=== PATIENT | female | born 1970 | race Two or more races ===

== ENCOUNTER 2016-12-25 22:03 | Emergency (ER) | payer SELFPAY ==
[~2016-12-25] VITALS: Ht 170.2 cm; Wt 78.7 kg
[~2016-12-25 22:03] MED LIST: AMLO10TA4 PO; CYCL-259 PO; HYDR25TA6 PO; LISI40TA PO
[2016-12-25] MEDS ORDERED: HYDROcodone/APAP 5/325 TABLET ONE (23:00)
[2016-12-25 23:19] LABS: HEMATOCRIT 40.5 % (34.6-47.8); HEMOGLOBIN 13.8 g/dL (11.7-16.4); WHITE BLOOD COUNT 6.1 x10^3/uL (3.4-10)
[2016-12-25 23:28] LABS: ASPARTATE AMINO TRANSFERASE 16 U/L (15-37); BLOOD UREA NITROGEN 16 mg/dL (7-18)
[2016-12-25] MEDS ORDERED: HYDROcodone/APAP 5/325 TABLET PO ONE (23:30)
[2016-12-26 00:08] VITALS: BP 110/66
== END 2016-12-26 01:03 ==
LOC: ED 23:07
DX: M25.562 Pain in left knee (principal); M79.652 Pain in left thigh; R10.9 Unspecified abdominal pain; I10 Essential (primary) hypertension; M79.7 Fibromyalgia; Z91.041 Radiographic dye allergy status; Z91.040 Latex allergy status; Z88.5 Allergy status to narcotic agent
CPT/HCPCS: 36415; 80053; 81003; 83690; 85025; 99285

== ENCOUNTER 2016-12-29 12:18 | Emergency (ER) | payer OTHER ==
[~2016-12-29] VITALS: Ht 170.2 cm; Wt 78.1 kg
[2016-12-29] MEDS ORDERED: SODIUM CHLORIDE FLUSH 10ML SYR IVF ONE (13:00)
[2016-12-29] MEDS ORDERED: HYDROmorphone 1 MG/ML, 1ML IV ONE (13:00)
[2016-12-29] MEDS ORDERED: ONDANSETRON 2MG/ML, 2ML IVPush ONE (13:00)
[2016-12-29 13:08] LABS: HEMOGLOBIN 15.4 g/dL (11.7-16.4); WHITE BLOOD COUNT 5.4 x10^3/uL (3.4-10)
[2016-12-29 13:23] LABS: BLOOD UREA NITROGEN 10 mg/dL (7-18)
[2016-12-29 13:30] LABS: ASPARTATE AMINO TRANSFERASE 20 U/L (15-37)
[2016-12-29] MEDS ORDERED: ONDANSETRON 2MG/ML, 2ML ONE (14:35)
[2016-12-29] MEDS ORDERED: HYDROmorphone 1 MG/ML, 1ML ONE (14:35)
[2016-12-29 15:55] VITALS: BP 101/55
== END 2016-12-29 15:58 | disposition home or self-care (01) ==
LOC: ED 14:39
DX: N83.02 Follicular cyst of left ovary (principal); I10 Essential (primary) hypertension
CPT/HCPCS: 36415; 76830; 80053; 81003; 83690; 84703; 85025; 96374; 96375; 99285; J1170; J2405

== ENCOUNTER 2017-03-17 20:19 | Emergency (ER) | payer OTHER ==
[~2017-03-17] VITALS: Ht 170.2 cm; Wt 84.0 kg
[2017-03-17] MEDS ORDERED: IBUPROFEN 200 MG TABLET ONE (21:22)
[2017-03-17 21:23] LABS: HEMATOCRIT 39.4 % (34.6-47.8); HEMOGLOBIN 13.5 g/dL (11.7-16.4); WHITE BLOOD COUNT 8.1 x10^3/uL (3.4-10)
[2017-03-17] MEDS ORDERED: HYDROcodone/APAP 5/325 TABLET ONE (21:23)
[2017-03-17] MEDS ORDERED: SODIUM CHLORIDE FLUSH 10ML SYR IVF ONE (21:30)
[2017-03-17] MEDS ORDERED: HYDROcodone/APAP 5/325 TABLET PO ONE (21:30)
[2017-03-17] MEDS ORDERED: IBUPROFEN 200 MG TABLET PO ONE (21:30)
[2017-03-17 21:33] LABS: ASPARTATE AMINO TRANSFERASE 15 U/L (15-37); BLOOD UREA NITROGEN 19 mg/dL (7-18)
[2017-03-17] MEDS ORDERED: OMNIPAQUE 350 MG/ML, 100ML BOTTLE ONE (22:10)
[2017-03-17 23:12] VITALS: BP 104/60
== END 2017-03-17 23:15 | disposition home or self-care (01) ==
LOC: ED 20:40
DX: N83.292 Other ovarian cyst, left side (principal); I10 Essential (primary) hypertension; M79.7 Fibromyalgia; Z88.5 Allergy status to narcotic agent; Z91.041 Radiographic dye allergy status
CPT/HCPCS: 36415; 74177; 80053; 81003; 83690; 85025; 99285; Q9967

== ENCOUNTER 2017-06-15 11:32 | Emergency (ER) | payer OTHER ==
[~2017-06-15] VITALS: Ht 170.2 cm; Wt 81.0 kg
[2017-06-15] MEDS ORDERED: ALBUTEROL/IPRATROPIUM 2.5MG/0.5MG, 3 ML NPPB ONE (12:00)
[2017-06-15] MEDS ORDERED: ALBUTEROL/IPRATROPIUM 2.5MG/0.5MG, 3 ML ONE (12:31)
[2017-06-15 12:59] VITALS: BP 158/70
== END 2017-06-15 13:01 | disposition home or self-care (01) ==
LOC: ED 12:45
DX: J20.8 Acute bronchitis due to other specified organisms (principal); B96.89 Other specified bacterial agents as the cause of diseases classified elsewhere; J00 Acute nasopharyngitis [common cold]; J01.00 Acute maxillary sinusitis, unspecified; J01.10 Acute frontal sinusitis, unspecified; Z90.710 Acquired absence of both cervix and uterus; Z91.040 Latex allergy status; Z91.048 Other nonmedicinal substance allergy status; Z91.041 Radiographic dye allergy status; I10 Essential (primary) hypertension; M79.7 Fibromyalgia
CPT/HCPCS: 71046; 94640; 99284; J7512; J7620

== ENCOUNTER 2019-12-16 12:54 | Emergency (ER) | payer OTHER ==
[~2019-12-16] VITALS: Ht 170.2 cm; Wt 81.0 kg
--- NOTE | 2019-12-16 13:24 | NUR ---
pt brought 21 to room from lobby
--- NOTE | 2019-12-16 13:30 | NUR ---
pt presents to ED for workup of symptoms since 12/01/19 - headache, nausea, diarrhea, bilateral upper abd and epigastric pain. yesterday had episode of bilateral shoulder pain, radiating to upper back and neck, this pain persists today, tender to touch, negative for covid 5 days ago. pt attached to all monitors, EKG taken by this RN, reviewed by ANDREW Lopez. Addendum: 12/16/19 at 1505 by SOCORRO pt presents to ED for workup of symptoms since 12/01/19 - headache, nausea, diarrhea, bilateral upper abd and epigastric pain. yesterday had episode of bilateral shoulder pain, radiating to upper back and neck, this pain persists today, tender to touch, negative for covid 5 days ago. pt is a&o, resps even and unlabored. pt attached to all monitors, EKG taken by this RN, reviewed by ANDREW Lopez. awaiting orders from provider at this time.
[2019-12-16] MEDS ORDERED: FAMOTIDINE 20 MG/2 ML ONE (13:57)
[2019-12-16] MEDS ORDERED: MAALOX/HYOSCYAMINE/LIDOCAINE 45 ML BTL ONE (13:57)
[2019-12-16] MEDS ORDERED: ONDANSETRON 2MG/ML, 2ML ONE (13:57)
[2019-12-16] MEDS ORDERED: MAALOX/HYOSCYAMINE/LIDOCAINE 45 ML BTL PO ONE (14:00)
[2019-12-16] MEDS ORDERED: SODIUM CHLORIDE 0.9% 1,000ML IVBOLUS ONE (14:00)
[2019-12-16] MEDS ORDERED: ONDANSETRON 2MG/ML, 2ML IVPush ONE (14:00)
[2019-12-16] MEDS ORDERED: FAMOTIDINE 20 MG/2 ML IV ONE (14:00)
--- NOTE | 2019-12-16 14:10 | NUR ---
PIV PLACED, IVF INFUSING, PT MEDICATED PER EMAR. PT TOLERATED WELL. PT IS A&O, RESPS EVEN AND UNLABORED, NSR ON LAB NURSE WITH NO ECTOPY NOTED.
[2019-12-16 14:36] LABS: BASOPHILS # (AUTO) 0.05 x10^3/uL (0-0.1); BASOPHILS % (AUTO) 1 % (0-1); EOSINOPHILS # (AUTO) 0.16 x10^3/uL (0-0.4); EOSINOPHILS % (AUTO) 2 % (1-7); LYMPHOCYTES # (AUTO) 2.07 x10^3/uL (1-3.4); LYMPHOCYTES % (AUTO) 24 % (22-44); MD NO; MEAN CORPUSCULAR HEMOGLOBIN 29.3 pg (27.0-34.8); MEAN CORPUSCULAR VOLUME 88.9 fL (80-100); MEAN PLATELET VOLUME 7.8 fL (7.4-10.4); MONOCYTES # (AUTO) 0.85 x10^3/uL (0.2-0.8); MONOCYTES % (AUTO) 10 % (2-9); NEUTROPHILS # (AUTO) 5.45 x10^3/uL (1.8-6.8); NEUTROPHILS % (AUTO) 64 % (42-75); PLATELET COUNT 285 x10^3/uL (130-400); RED BLOOD COUNT 4.92 x10^6/uL (3.82-5.3); RED CELL DISTRIBUTION WIDTH 13.3 % (9.6-15.2)
[2019-12-16 14:37] LABS: ALBUMIN 3.6 g/dL (3.4-5.0); ANION GAP 6 mmol/L (5-15); CALCIUM 9.4 mg/dL (8.5-10.1); CHLORIDE 112 mmol/L (98-107)
[2019-12-16 14:40] LABS: ALANINE AMINOTRANSFERASE 45 U/L (12-78); ALKALINE PHOSPHATASE 100 U/L (45-117); BILIRUBIN,TOTAL 0.3 mg/dL (0.2-1.0); TOTAL PROTEIN 7.3 g/dL (6.4-8.2)
[2019-12-16 14:54] VITALS: BP 144/81
--- NOTE | 2019-12-16 15:09 | NUR ---
REVIEW OF CHART, ASSUME CARE OF PT AT THIS TIME.
--- NOTE | 2019-12-16 15:11 | NUR ---
REPORT GIVEN TO SANDOVAL ESTRELLA WHO IS ASSUMING CARE, PT HAS NOT STOOLED SINCE ARRIVAL TO ED.
--- NOTE | 2019-12-16 15:25 | NUR ---
PT REPORTS ABD PAIN IS WORSE, REQUESTING PAIN MEDICATION. EDPA NOTIFIED. PT IS A&O, RESPS EVEN AND UNLABORED, CURLED AND CLUTCHING STOMACH. PT ASKED IF SHE IS ABLE TO PROVIDE STOOL SAMPLE, PT DENIES URGE AT THIS TIME. CALL LIGHT IN REACH, ALL MONITORS IN PLACE, KIMBERLY ZAVALETA TO SEE PT.
--- NOTE | 2019-12-16 16:19 | NUR ---
ADD ON ORDER FOR CT ABD/PELVIS.
[2019-12-16] MEDS ORDERED: OMNIPAQUE 350 MG/ML, 100ML BOTTLE ONE (16:50)
[2019-12-16 18:30] LABS: MICROSCOPIC NOT IND
[2019-12-16 18:34] LABS: CLOSTRIDIUM DIFFICILE ANTIGEN NEGATIVE; CLOSTRIDIUM DIFFICILE TOXIN NEGATIVE (Negative)
--- NOTE | 2019-12-16 19:19 | NUR ---
REPORT FROM SANDOVAL JO. PT CARE RESPNSIBILITIES ASSUMED.
--- NOTE | 2019-12-16 19:28 | NUR ---
STOOL RESULTS BACK, PT FOR RECHECK. REPORT TO VERA NICK.
== END 2019-12-16 20:12 | disposition home or self-care (01) ==
LOC: ED 14:19
DX: A02.0 Salmonella enteritis (principal); R11.2 Nausea with vomiting, unspecified; R19.7 Diarrhea, unspecified; R51 Headache; R94.31 Abnormal electrocardiogram [ECG] [EKG]; I10 Essential (primary) hypertension; Z90.710 Acquired absence of both cervix and uterus
CPT/HCPCS: 36415; 74177; 80053; 81003; 83690; 85025; 87324; 89055; 93005; 96361; 96374; 96375; 99285; J2405; J3490; J7030; Q9967

== ENCOUNTER 2020-05-03 09:36 | Emergency (ER) | payer SELFPAY ==
[~2020-05-03] VITALS: Ht 170.2 cm; Wt 81.5 kg
--- NOTE | 2020-05-03 10:02 | NUR ---
PT PRESENTED TO ED D/T DIFFUSE ABD PAIN, N/V, DIARRHEA, AND INSOMNIA SINCE OCTOBER 2019. PT STATES HAS LOST "7 POUNDS" OVER THE PAST WEEK. HX OF FIBROMYALGIA. RECENTLY DIAGNOSED WITH HYPOPARATHYROIDISM.
[2020-05-03] MEDS ORDERED: AMIT50TA PO (10:07)
--- NOTE | 2020-05-03 10:07 | NUR ---
PA STUDENT AT BEDSIDE.
[2020-05-03] MEDS ORDERED: FAMOTIDINE 20 MG/2 ML ONE (10:20)
[2020-05-03] MEDS ORDERED: MAALOX/HYOSCYAMINE/LIDOCAINE 45 ML BTL ONE (10:20)
[2020-05-03] MEDS ORDERED: ONDANSETRON 2MG/ML, 2ML ONE (10:20)
--- NOTE | 2020-05-03 10:32 | NUR ---
PIV ACCESS OBTAINED, 20 R AC. PT MEDICATED PER EMAR. LABS COLLECTED AND PROVIDED TO LAB. AWAITING CT SCAN. PT STATES UNABLE TO VOID AT THIS TIME. RN TO REASSESS.
[2020-05-03 10:40] LABS: BASOPHILS % (AUTO) 1 % (0-1); EOSINOPHILS % (AUTO) 2 % (1-7); LYMPHOCYTES % (AUTO) 18 % (22-44); MEAN CORPUSCULAR HEMOGLOBIN 30.3 pg (27.0-34.8); MEAN CORPUSCULAR HGB CONC 34.7 g/dL (32.4-35.8); MEAN PLATELET VOLUME 7.7 fL (7.4-10.4); MONOCYTES % (AUTO) 9 % (2-9); NEUTROPHILS % (AUTO) 70 % (42-75); PLATELET COUNT 359 x10^3/uL (130-400); RED BLOOD COUNT 5.29 x10^6/uL (3.82-5.3); RED CELL DISTRIBUTION WIDTH 13.5 % (9.6-15.2)
[2020-05-03 10:42] LABS: MD NO
[2020-05-03 10:55] LABS: ALBUMIN 4.1 g/dL (3.4-5.0); ANION GAP 10 mmol/L (5-15); CALCIUM 9.8 mg/dL (8.5-10.1); CHLORIDE 106 mmol/L (98-107)
[2020-05-03] MEDS ORDERED: ACETAMINOPHEN 500 MG TABLET ONE (10:57)
[2020-05-03 10:58] LABS: ALANINE AMINOTRANSFERASE 56 U/L (12-78); ALKALINE PHOSPHATASE 109 U/L (45-117); BILIRUBIN,TOTAL 0.6 mg/dL (0.2-1.0); CREATININE 1.03 mg/dL (0.55-1.02); TOTAL PROTEIN 8.1 g/dL (6.4-8.2)
--- NOTE | 2020-05-03 10:59 | NUR ---
PT MEDICATED FOR 9/10 ABD PAIN.
[2020-05-03] MEDS ORDERED: FAMOTIDINE 20 MG/2 ML IV ONE (11:00)
[2020-05-03] MEDS ORDERED: MAALOX/HYOSCYAMINE/LIDOCAINE 45 ML BTL PO ONE (11:00)
[2020-05-03] MEDS ORDERED: ACETAMINOPHEN 500 MG TABLET PO ONE (11:00)
[2020-05-03] MEDS ORDERED: ONDANSETRON 2MG/ML, 2ML IVPush ONE (11:00)
[2020-05-03] MEDS ORDERED: SODIUM CHLORIDE 0.9% 1,000ML IVBOLUS ONE (11:00)
[2020-05-03] MEDS ORDERED: SODIUM CHLORIDE FLUSH 10ML SYR IVF ONE (11:30)
--- NOTE | 2020-05-03 11:36 | NUR ---
PT AMBULATED TO RESTROOM TO TRY AND PROVIDE RN WITH A URINE SAMPLE.
--- NOTE | 2020-05-03 11:56 | NUR ---
RN INFORMED MD THAT PT IS STILL HAVING PAIN AFTER ADMINISTRATION OF TYLENOL PER EMAR. NO NEW INTERVENTIONS PER ERMD. AWAITING CT SCAN.
[2020-05-03] MEDS ORDERED: DICYCLOMINE 10 MG/ML, 2ML ONE (11:58)
--- NOTE | 2020-05-03 12:01 | NUR ---
ADDITIONAL MEDICATION ADMINISTERED PER EMAR FOR 9/10 ABD PAIN.
[2020-05-03 12:09] LABS: MICROSCOPIC AUTO
--- NOTE | 2020-05-03 12:29 | NUR ---
PT IN CT SCAN.
[2020-05-03] MEDS ORDERED: DICYCLOMINE 10 MG/ML, 2ML IM ONE (12:30)
[2020-05-03] MEDS ORDERED: OMNIPAQUE 350 MG/ML, 100ML BOTTLE ONE (12:35)
--- NOTE | 2020-05-03 12:56 | NUR ---
PT ASLEEP ON GURHYDE. AWAITING RESULTS OF CT SCAN.
[2020-05-03 13:41] VITALS: BP 114/58
--- NOTE | 2020-05-03 13:44 | NUR ---
PT BEING DISCHARGED HOME IN A STABLE CONDITION. PIV REMOVED WITH TIP INTACT. DC INSTRUCTIONS DISCUSSED WITH PT. PT VERBALIZED UNDERSTANDING. NO FURTHER QUESTIONS OR CONCERNS EXPRESSED AT THAT TIME. PT TO AMBULATE WITH RN TO DC DESK.
== END 2020-05-03 14:11 | disposition home or self-care (01) ==
LOC: ED 10:16
DX: R82.71 Bacteriuria (principal); R19.7 Diarrhea, unspecified; R93.5 Abnormal findings on diagnostic imaging of other abdominal regions, including retroperitoneum; R10.13 Epigastric pain; R00.0 Tachycardia, unspecified; I10 Essential (primary) hypertension; Z90.710 Acquired absence of both cervix and uterus; Z90.722 Acquired absence of ovaries, bilateral; Z88.6 Allergy status to analgesic agent; Z91.040 Latex allergy status
CPT/HCPCS: 36415; 74177; 80053; 81001; 83605; 83690; 85025; 87086; 96361; 96372; 96374; 96375; 99285; J0500; J2405; J7030; Q9967

== ENCOUNTER 2020-06-17 15:40 | Emergency (ER) | payer SELFPAY ==
[~2020-06-17] VITALS: Ht 170.2 cm; Wt 80.7 kg
[~2020-06-17 15:40] MED LIST changes: +AMIT50TA PO; -CYCL-259 PO; +CYCL10TA2 PO; -LISI40TA PO; +LISI40TA9 PO
--- NOTE | 2020-06-17 16:52 | NUR ---
PT AMBULATED TO ROOM FROM LOBBY WITH STEADY GAIT.
--- NOTE | 2020-06-17 16:59 | NUR ---
PT C/O LEFT GROIN PAIN WITH INTERMITTENT SHOOTING PAIN INTO ABD AND DOWN LEFT LEG. PT STATES LEFT LEG FELT NUMB FOR A COUPLE MINUTES, THEN WAS BETTER. PT CONNECTED TO MONITORING. CALL LIGHT IN REACH. WARM BLANKET PROVIDED.
[2020-06-17] MEDS ORDERED: METF500T17 PO (17:01)
[2020-06-17] MEDS ORDERED: ONDANSETRON 2MG/ML, 2ML ONE (17:56)
[2020-06-17] MEDS ORDERED: MORPHINE SULFATE 4 MG/ML, 1ML ONE ×2 (17:56→19:14)
[2020-06-17] MEDS: MORPHINE SULFATE 4 MG/ML, 1ML IVPush PRN ×2 (17:58→19:15)
[2020-06-17] MEDS ORDERED: ONDANSETRON 2MG/ML, 2ML IVPush ONE (18:00)
[2020-06-17] MEDS ORDERED: SODIUM CHLORIDE FLUSH 10ML SYR IVF ONE (18:00)
--- NOTE | 2020-06-17 18:01 | NUR ---
PIV PLACED, LABS DRAWN AND SENT TO LAB WITH LAB SLIP. PT AMBULATED TO RESTROOM WITH STEADY GAIT TO PROVIDE URINE SAMPLE. UA COLLECTED AND SENT TO LAB. MEDS ADMIN PER JUN. PT CONNECTED TO MONITORING. CALL LIGHT IN REACH.
[2020-06-17 18:15] LABS: BASOPHILS % (AUTO) 1 % (0-1); EOSINOPHILS % (AUTO) 2 % (1-7); LYMPHOCYTES % (AUTO) 29 % (22-44); MONOCYTES % (AUTO) 7 % (2-9); NEUTROPHILS % (AUTO) 61 % (42-75); PLATELET COUNT 304 x10^3/uL (130-400); RED BLOOD COUNT 4.84 x10^6/uL (3.82-5.3); RED CELL DISTRIBUTION WIDTH 13.9 % (9.6-15.2)
[2020-06-17 18:22] LABS: MICROSCOPIC NOT IND
[2020-06-17 18:23] LABS: ALBUMIN 3.6 g/dL (3.4-5.0); ANION GAP 5 mmol/L (5-15); CALCIUM 8.9 mg/dL (8.5-10.1); CHLORIDE 106 mmol/L (98-107)
[2020-06-17 18:24] LABS: MD NO
--- NOTE | 2020-06-17 18:40 | NUR ---
PT GOING TO CT.
[2020-06-17] MEDS ORDERED: OMNIPAQUE 350 MG/ML, 100ML BOTTLE ONE (19:00)
--- NOTE | 2020-06-17 19:17 | NUR ---
PT C/O PAIN. CLIENT EXPERIENCE SPECIALIST PER JUN.
--- NOTE | 2020-06-17 20:16 | NUR ---
ALL RESULTS ARE BACK AT THIS TIME. CHART UP FOR RECHECK.
--- NOTE | 2020-06-17 20:23 | NUR ---
MD AT BEDSIDE TO UPDATE PT ON POC.
[2020-06-17 20:25] VITALS: BP 124/70
== END 2020-06-17 20:45 | disposition home or self-care (01) ==
LOC: ED 16:50
DX: K57.30 Diverticulosis of large intestine without perforation or abscess without bleeding (principal); R10.32 Left lower quadrant pain; I10 Essential (primary) hypertension; M79.7 Fibromyalgia; Z90.710 Acquired absence of both cervix and uterus
CPT/HCPCS: 36415; 74177; 80048; 81003; 82040; 84703; 85025; 96374; 96375; 96376; 99285; J2270; J2405; Q9967

== ENCOUNTER 2020-08-10 12:31 | Emergency (ER) | payer MEDICAID ==
[~2020-08-10] VITALS: Ht 170.2 cm; Wt 77.9 kg
[~2020-08-10 12:31] MED LIST changes: +METF500T17 PO
--- NOTE | 2020-08-10 12:55 | NUR ---
PT AMBULATORY TO ROOM 10 W/ C/O ABD PAIN BURNING STARTED LAST NGIHT AFTER PT ATE A SALAD. STATES SHE HAS HX GI ISSUES W/ HX TUMMY TUCK SURGERY 12 YRS AGO. PT STATES "I'D RATHER BE HAVING TRIPLETS IT HURTS THAT BAD". PT RESTLESS ON GURNEY BUT COOPERATIVE. PROVIDED W/ WARM BLANKET. MONITORS APPLIED.
[2020-08-10] MEDS ORDERED: ONDANSETRON 2MG/ML, 2ML IVPush ONE (14:00)
[2020-08-10] MEDS ORDERED: SODIUM CHLORIDE FLUSH 10ML SYR IVF ONE (14:00)
[2020-08-10] MEDS ORDERED: FAMOTIDINE 20 MG/2 ML IVPush ONE (14:00)
[2020-08-10] MEDS ORDERED: MAALOX/HYOSCYAMINE/LIDOCAINE 45 ML BTL PO ONE (14:00)
[2020-08-10] MEDS ORDERED: ONDANSETRON 2MG/ML, 2ML ONE (14:01)
[2020-08-10] MEDS ORDERED: FAMOTIDINE 20 MG/2 ML ONE (14:01)
[2020-08-10] MEDS ORDERED: MAALOX/HYOSCYAMINE/LIDOCAINE 45 ML BTL ONE (14:14)
--- NOTE | 2020-08-10 14:15 | NUR ---
PT NOTED TO HAVE PO MEDS PER MAR. PT HAS ORDERS FOR STRICT NPO PER ERP DR. STEPHANIE GUPTA TO GIVE PT GI COCKTAIL. PT MEDICATED PER MAR.
[2020-08-10 14:16] LABS: MICROSCOPIC INDICATED
[2020-08-10 14:23] LABS: BASOPHILS % (AUTO) 1 % (0-1); EOSINOPHILS % (AUTO) 1 % (1-7); LYMPHOCYTES % (AUTO) 20 % (22-44); MD NO; MEAN CORPUSCULAR HEMOGLOBIN 29.5 pg (27.0-34.8); MEAN CORPUSCULAR HGB CONC 33.7 g/dL (32.4-35.8); MEAN PLATELET VOLUME 7.3 fL (7.4-10.4); MONOCYTES % (AUTO) 7 % (2-9); NEUTROPHILS % (AUTO) 71 % (42-75); PLATELET COUNT 363 x10^3/uL (130-400); RED CELL DISTRIBUTION WIDTH 13.4 % (9.6-15.2)
[2020-08-10 14:32] LABS: ALANINE AMINOTRANSFERASE 71 U/L (12-78); ALBUMIN 3.6 g/dL (3.4-5.0); ANION GAP 4 mmol/L (5-15); CALCIUM 9.3 mg/dL (8.5-10.1); CHLORIDE 107 mmol/L (98-107); CREATININE 0.79 mg/dL (0.55-1.02)
[2020-08-10 14:34] LABS: ALKALINE PHOSPHATASE 123 U/L (45-117); BILIRUBIN,TOTAL 0.4 mg/dL (0.2-1.0); TOTAL PROTEIN 7.4 g/dL (6.4-8.2)
--- NOTE | 2020-08-10 14:40 | NUR ---
PT REMAINS IN PAIN. ERP DR. BROWN NOTIFIED. STATES WILL ORDER BENTYL FOR PT.
[2020-08-10] MEDS ORDERED: DICYCLOMINE 10 MG/ML, 2ML ONE (14:43)
--- NOTE | 2020-08-10 14:48 | NUR ---
PT CHART REVIEWED AND PLACED FOR RECHECK.
[2020-08-10] MEDS ORDERED: DICYCLOMINE 10 MG/ML, 2ML IM ONE (15:00)
--- NOTE | 2020-08-10 15:15 | NUR ---
PER ERP DR. STEPHANIE GUPTA TO DC AT THIS TIME W/ LACTIC ACID 2.6
[2020-08-10] MEDS ORDERED: HALOPERIDOL 5 MG/ML IM ONE (15:30)
[2020-08-10] MEDS ORDERED: HALOPERIDOL 5 MG/ML ONE (15:43)
[2020-08-10 15:46] VITALS: BP 140/92
--- NOTE | 2020-08-10 15:46 | NUR ---
PT MEDICATED PER JUN. PT RESTING ON FABIO. VSS.
--- NOTE | 2020-08-10 16:04 | NUR ---
PT SLEEPING ON GUMIKY. EUNICE. VSS. PT PLACED FOR RECHECK.
== END 2020-08-10 17:15 | disposition home or self-care (01) ==
LOC: ED 13:27
DX: G89.29 Other chronic pain (principal); R10.13 Epigastric pain; R19.7 Diarrhea, unspecified; R11.0 Nausea; R10.84 Generalized abdominal pain; I10 Essential (primary) hypertension; R94.31 Abnormal electrocardiogram [ECG] [EKG]; Z90.721 Acquired absence of ovaries, unilateral; Z90.710 Acquired absence of both cervix and uterus; Z98.51 Tubal ligation status
CPT/HCPCS: 36415; 74022; 80053; 81001; 83605; 83690; 85025; 87086; 93005; 96372; 96374; 96375; 99285; J0500; J1630; J2405